=== PATIENT | female | born 1975 | race African-American/Black ===

== ENCOUNTER 2019-07-20 11:25 | Emergency (ER) | payer MEDICAID ==
[~2019-07-20] VITALS: Ht 160 cm; Wt 73.0 kg
[2019-07-20] MEDS ORDERED: ONDANSETRON HCL 4MG/2ML INJ IV STA (12:24)
[2019-07-20] MEDS ORDERED: MORPHINE SULFATE 4 MG/ML CPJ (NOT FOR IM USE) IV STA (12:24)
[2019-07-20] MEDS ORDERED: SODIUM CHLORIDE 0.9% 1,000 ML IV ONE (12:24)
[2019-07-20 13:04] LABS: BASOPHILS % 0.6 % (0.0-2.0); EOSINOPHILS % 3.1 % (0.0-5.0); HEMATOCRIT. 26.4 % (36.0-48.0); LYMPHOCYTES % 19.4 % (20.0-50.0); MEAN CORPUSCULAR HEMOGLOBIN 19.9 pg (28.0-32.0); MEAN CORPUSCULAR VOLUME 65.9 fL (81.0-99.0); MEAN PLATELET VOLUME 9.6 fl (7.4-10.4); MONOCYTES % 6.5 % (2.0-8.0); NEUTROPHILS % 70.4 % (40.0-76.0); PLATELET 253 x1000/uL (130-400); RED BLOOD CELL COUNT 4.01 mill/uL (4.2-5.4); RED CELL DISTRIBUTION WIDTH 22.8 % (11.6-14.6)
[2019-07-20 13:09] LABS: CHLORIDE 115 mEq/L (98-107)
[2019-07-20 13:30] LABS: PLATELET ESTIMATE NORMAL
[2019-07-20] MEDS ORDERED: IOHEXOL-300 100 ML BOTTLE ONE (15:09)
[2019-07-20 15:41] LABS: CLARITY URINE CLEAR (CLEAR); COLOR URINE YELLOW (YELLOW); KETONES URINE NEGATIVE (NEGATIVE); LEUKOCYTE ESTERASE URINE 2+ (NEGATIVE); NITRITE URINE NEGATIVE (NEGATIVE); OCCULT BLOOD URINE NEGATIVE (NEGATIVE); PH URINE 7.5 (4.5-8.0); PROTEIN URINE NEGATIVE (NEGATIVE); SPECIFIC GRAVITY URINE 1.008 (1.005-1.030); UROBILINOGEN URINE 0.2 E.U./dL (0.2-1.0)
[2019-07-20] MEDS ORDERED: PIPERACILLIN/TAZ 3.375G PREMIX 50 ML IV NR (17:00)
[2019-07-20] MEDS ORDERED: PIPERACILLIN/TAZOBACTAM 3.375GM/50ML PREMIX IV ONE (17:00)
[2019-07-20 20:51] VITALS: BP 144/89
== END 2019-07-20 20:54 | disposition left against medical advice (07) ==
LOC: ER 11:25 → EDBEDREQTM 18:43 → EDBEDREQ 18:43 → ENRESERV 19:25 → CANRESERV 19:25 → ER 20:54 → CANBEDREQ 07-21 08:34
DX: R10.9 Unspecified abdominal pain (principal); K52.9 Noninfective gastroenteritis and colitis, unspecified; I51.9 Heart disease, unspecified; Z93.3 Colostomy status; Z90.710 Acquired absence of both cervix and uterus
CPT/HCPCS: 36415; 74177; 80053; 81003; 83690; 84484; 85025; 93005; 96374; 96375; 99284; J2270; J2405; J7030; Q9967